=== PATIENT | female | born 1955 | race Caucasian/White ===

== ENCOUNTER → 2019-01-22 | Outpatient (CLI) | payer OTHER ==
--- NOTE | 2019-01-22 16:51 | Diagnostic Imaging Report ---
EXAM: Focused Soft Tissue Ultrasound Evaluation of right foot INDICATION: ^SWELLING OF RIGHT FOOT COMPARISON: None TECHNIQUE: Falk scale, color Doppler images of the subcutaneous soft tissues of the right foot were obtained. FINDINGS: There is subcutaneous soft tissue edema and fluid tracking throughout the soft tissues with no focal drainable fluid collection. No soft tissue mass lesion IMPRESSION: Soft tissue edema and fluid tracking throughout the subcutaneous soft tissues of the right foot with no focal mass or drainable fluid collection. Signed by: Tavo Garnett MD on 01/22/2019 4:48 PM
== END ==
LOC: US 15:52
PROVIDERS: ATTEND Family Medicine
DX: L03.115 Cellulitis of right lower limb (principal); M79.89 Other specified soft tissue disorders
CPT/HCPCS: 76882; 93926; 93971

== ENCOUNTER 2019-08-04 09:58 | Outpatient (RCR) | payer OTHER ==
[2019-08-05] MEDS ORDERED: HEPARIN SOD (PORCINE) 1000 UNIT/ML 30ML ONE (11:36)
[2019-08-05] MEDS ORDERED: MIDAZOLAM HCL 2 MG/2 ML VIAL ONE (11:36)
[2019-08-05] MEDS ORDERED: IOPAMIDOL 370 MG/ML 200 ML INFUS..BTL INJ ONE (11:37)
[2019-08-05] MEDS ORDERED: HEPARIN SOD/SOD CHLORIDE 0 ML ONE (11:37)
[2019-08-05] MEDS ORDERED: LIDOCAINE HCL 2% LOCAL 20 ML VIAL ONE (11:37)
[2019-08-05] MEDS ORDERED: SODIUM CHLORIDE 0.9% 1000ML 0 ML ONE (11:37)
[2019-08-05] MEDS ORDERED: FENTANYL CITRATE/PF 100MCG/2 ML INJ ONE (11:37)
== END 2019-08-16 ==
LOC: PT 09:58
PROVIDERS: ATTEND Specialist
DX: M17.11 Unilateral primary osteoarthritis, right knee (principal); S83.241A Other tear of medial meniscus, current injury, right knee, initial encounter
CPT/HCPCS: J1644; J2001; J2250; J3010; J7030; Q9967

== ENCOUNTER 2021-09-14 17:00 | Outpatient (RCR) | payer OTHER | END 2021-09-15 | LOC: PT 17:00 | PROVIDERS: ATTEND Specialist | DX: M17.0 Bilateral primary osteoarthritis of knee (principal); S83.222A Peripheral tear of medial meniscus, current injury, left knee, initial encounter; M70.51 Other bursitis of knee, right knee | CPT/HCPCS: 97139 ==

== ENCOUNTER 2021-09-30 12:56 | Outpatient (RCR) | payer OTHER | END 2021-10-15 | LOC: PT 12:56 | PROVIDERS: ATTEND Specialist | DX: M17.0 Bilateral primary osteoarthritis of knee (principal); S83.222A Peripheral tear of medial meniscus, current injury, left knee, initial encounter; M70.51 Other bursitis of knee, right knee ==

== ENCOUNTER → 2021-10-14 | Outpatient (CLI) | payer OTHER | LOC: MRI 09:45 | PROVIDERS: ATTEND Specialist | DX: S83.242A Other tear of medial meniscus, current injury, left knee, initial encounter (principal) ==